=== PATIENT | female | born 1935 | race Caucasian/White ===

== ENCOUNTER 2016-05-28 08:59 | Emergency (ER) | payer MEDICARE, OTHER ==
[~2016-05-28] VITALS: Ht 160 cm; Wt 60.0 kg
[~2016-05-28 08:59] MED LIST: AFRIN 15 ML15 ML NS; ASPIRIN E.C. 8181 MG PO; COLACE 100100 MG/CAP PO; COUMADIN 1MG1 MG/TAB PO; COUMADIN1 MG PO; COUMADIN2 MG PO; DIGOXIN PO; FISH OIL1000 MG PO; FISH OIL500 MG PO; IRON FERROUS S325 MG PO; LANOX0.0625; LANOXIN0.5 MG PO; LEVOTHYROXINE PO; MUCINEX D1 TER PO; MULTAQ400 MG PO; MULTIVITAMIN1 CTB PO; NEXIUM PO; PREMARIN PO; PRILOSEC 20MG20 MG PO; PRILOTC; REMERON30 MG PO; SIMVASTATIN20 MG PO; SINEMET 10/101 UDTAB PO; SYNTHROID0.1 MG/TAB PO; TAMBOCOR 1100 MG/TAB PO; VITAMIN D5000 IU PO; VITAMIND3 5000 PO; ZANTAC 150150 MG PO; ZOCOR 20MG20 MG PO
[2016-05-28 09:13] VITALS: BP 120/59; TEMP 98.5
[2016-05-28] MEDS ORDERED: COUMADIN 2MG2 MG/TAB PO (09:32)
[2016-05-28] MEDS ORDERED: COUMADIN 3MG3 MG/TAB PO (09:32)
[2016-05-28 09:45] LABS: BASO % 0.3 % (0.0-2.0); EOS # 0.1 (0.0-0.7); EOS % 0.6 % (0-4.0); GRAN # 6.3 (1.4-6.5); GRAN % 78.8 % (42.2-75.2); HEMATOCRIT 38.2 % (37.0-47.0); HEMOGLOBIN 12.8 g/dl (12.5-16.0); LYMPH % 13.1 % (20.0-51.0); MEAN CELL VOLUME 89 fl (80.0-100.0); MEAN CORPUSCULAR HEMOGLOBIN 30 pg (27.0-31.0); MEAN CORPUSCULAR HGB CONC 34 g/dl (33.0-37.0); MEAN PLATELET VOLUME 9.1 fl (7.4-10.4); MONO # 0.6 (0.1-0.6); MONO % 6.9 % (1.7-9.3); PLATELET COUNT 217 K/mm3 (130-400); RED BLOOD COUNT 4.31 M/mm3 (4.10-5.30); REDCELL DISTRIBUTION WIDTH-CV 13.2 % (11.5-14.5); WHITE BLOOD COUNT 7.9 K/mm3 (4.8-10.8)
[2016-05-28 09:50] LABS: PROTHROMBIN TIME 36.2 SECONDS (9.7-12.8)
[2016-05-28 09:51] LABS: INR 3.2 (0.8-3.0)
[2016-05-28 10:26] VITALS: PULSE 69
== END 2016-05-28 10:27 | disposition home or self-care (01) ==
LOC: COL.ER 08:59
PROVIDERS: Emergency Medicine
DX: R04.0 Epistaxis (principal); I10 Essential (primary) hypertension; Z79.01 Long term (current) use of anticoagulants

== ENCOUNTER 2016-08-25 16:51 | Emergency (ER) | payer MEDICARE, OTHER ==
[~2016-08-25] VITALS: Ht 160 cm; Wt 57.7 kg
[~2016-08-25 16:51] MED LIST changes: +COUMADIN 2MG2 MG/TAB PO; +COUMADIN 3MG3 MG/TAB PO
[2016-08-25 16:56] VITALS: TEMP 97.9
[2016-08-25 19:02] VITALS: BP 132/62; PULSE 74
== END 2016-08-25 19:03 | disposition home or self-care (01) ==
LOC: COL.ER 16:51
DX: S00.03XA Contusion of scalp, initial encounter (principal); S09.90XA Unspecified injury of head, initial encounter; S00.81XA Abrasion of other part of head, initial encounter; S60.512A Abrasion of left hand, initial encounter; S80.02XA Contusion of left knee, initial encounter; I48.91 Unspecified atrial fibrillation; W01.198A Fall on same level from slipping, tripping and stumbling with subsequent striking against other object, initial encounter; Y92.512 Supermarket, store or market as the place of occurrence of the external cause; E11.9 Type 2 diabetes mellitus without complications; Z79.82 Long term (current) use of aspirin; Z79.01 Long term (current) use of anticoagulants; R40.2412 Glasgow coma scale score 13-15, at arrival to emergency department

== ENCOUNTER 2016-11-24 13:25 | Inpatient (IN) | payer MEDICARE, OTHER ==
[~2016-11-24] VITALS: Ht 157.5 cm; Wt 54.6 kg
[2016-11-24 14:59] LABS: BASO % 0.1 % (0.0-2.0); EOS % 0.4 % (0-4.0); GRAN # 5.6 (1.4-6.5); GRAN % 71.7 % (42.2-75.2); HEMATOCRIT 38.5 % (37.0-47.0); HEMOGLOBIN 13.3 g/dl (12.5-16.0); LYMPH # 1.3 (1.2-3.4); LYMPH % 16.9 % (20.0-51.0); MEAN CELL VOLUME 87 fl (80.0-100.0); MEAN CORPUSCULAR HEMOGLOBIN 30 pg (27.0-31.0); MEAN CORPUSCULAR HGB CONC 35 g/dl (33.0-37.0); MEAN PLATELET VOLUME 9.9 fl (7.4-10.4); MONO # 0.8 (0.1-0.6); MONO % 10.3 % (1.7-9.3); PLATELET COUNT 206 K/mm3 (130-400); RED BLOOD COUNT 4.44 M/mm3 (4.10-5.30); WHITE BLOOD COUNT 7.9 K/mm3 (4.8-10.8)
[2016-11-24 15:03] LABS: INR 2.1 (0.8-3.0); PROTHROMBIN TIME 24.4 SECONDS (9.7-12.8)
[2016-11-24 15:05] LABS: PARTIAL THROMBOPLASTIN TIME 30.4 SECONDS (26.0-37.0)
[2016-11-24 15:13] LABS: ADJUSTED CALCIUM 9.5 mg/dL (8.4-10.2); ALANINE AMINOTRANSFERASE 39 U/L (9-52); ALBUMIN 4.2 gm/dL (3.5-5.0); ALKALINE PHOSPHATASE 86 U/L (50-136); ANION GAP 9 mmol/L (7-16); BILIRUBIN,TOTAL 0.5 mg/dL (0.0-1.0); BLOOD UREA NITROGEN 22 mg/dL (7-17); C-REACTIVE PROTEIN 0.6 mg/dL (0.0-0.9); CALCIUM 9.7 mg/dL (8.4-10.2); CARBON DIOXIDE 31 mmol/L (22-30); CHLORIDE 97 mmol/L (98-107); CREATINE KINASE 43 U/L (30-135); CREATININE, serum 0.88 mg/dL (0.52-1.25); GLUCOSE 104 mg/dL (74-106); POTASSIUM 3.6 mmol/L (3.4-5.0); SODIUM 137 mmol/L (137-145); TOTAL PROTEIN 6.6 gm/dL (6.4-8.2)
[2016-11-24] MEDS ORDERED: SINEMET 25/101 UDTAB PO (15:17)
[2016-11-24] MEDS ORDERED: ZANTAC 150MG T150 MG PO (15:19)
[2016-11-24 15:29] LABS: TROPONIN-I < 0.012 ng/mL (0.000-0.034)
[2016-11-24 15:30] LABS: PH 7 (5-8); SQUAMOUS EPITHELIAL 0-2 /hpf; URINE APPEARANCE Clear; URINE BACTERIA Rare /hpf; URINE BILIRUBIN Negative (NEGATIVE); URINE BLOOD 1+ (NEGATIVE); URINE COLOR Yellow; URINE GLUCOSE Negative (NEGATIVE); URINE KETONE Negative (NEGATIVE); URINE UROBILINOGEN Negative (NEGATIVE); URINE WBC 0-2 /hpf
[2016-11-24] MEDS ORDERED: LANOXIN 0.120.125 MG PO (16:09)
[2016-11-24 17:46] VITALS: BP 171/73; PULSE 69; TEMP 97.9
[2016-11-24 18:33] LABS: DIGOXIN < 0.4 ng/mL (0.8-2.0)
[2016-11-24 19:44] VITALS: BP 110/57; PULSE 64; TEMP 97.3
[2016-11-25] VITALS (7 sets, daily range): BP systolic 109–178; BP diastolic 61–78; PULSE 59–69; TEMP 97.5–98.2
[2016-11-25 06:50] LABS: CALCIUM 9.2 mg/dL (8.4-10.2); CREATININE, serum 0.81 mg/dL (0.52-1.25); INR 2.2 (0.8-3.0); POTASSIUM 3.5 mmol/L (3.4-5.0); PROTHROMBIN TIME 24.7 SECONDS (9.7-12.8)
[2016-11-26 03:23] VITALS: BP 136/64; PULSE 61; TEMP 98
[2016-11-26 08:17] VITALS: BP 113/66; PULSE 70; TEMP 97.6
[2016-11-26 11:15] VITALS: BP 114/62; PULSE 57; TEMP 98
== END 2016-11-26 16:15 | disposition home or self-care (01) | DRG 57 ==
LOC: COL.ER 13:25 → MEDICAL 16:03
PROVIDERS: Emergency Medicine; Physician Assistant
DX: G20 Parkinson's disease (principal); G81.94 Hemiplegia, unspecified affecting left nondominant side; I10 Essential (primary) hypertension; I48.2 Chronic atrial fibrillation; Z86.711 Personal history of pulmonary embolism; Z79.01 Long term (current) use of anticoagulants; G62.9 Polyneuropathy, unspecified
CPT/HCPCS: 99223-AI; 99233-AI; 99239; A9585

== ENCOUNTER 2016-11-27 13:29 | Emergency (ER) | payer MEDICARE, OTHER ==
[~2016-11-27] VITALS: Ht 160 cm; Wt 54.5 kg
[~2016-11-27 13:29] MED LIST changes: +LANOXIN 0.120.125 MG PO; +SINEMET 25/101 UDTAB PO; +ZANTAC 150MG T150 MG PO
[2016-11-27 13:32] VITALS: TEMP 97.7
[2016-11-27 14:12] LABS: BASO % 0.2 % (0.0-2.0); EOS % 0.3 % (0-4.0); GRAN # 7.8 (1.4-6.5); GRAN % 80.6 % (42.2-75.2); HEMATOCRIT 40.2 % (37.0-47.0); HEMOGLOBIN 13.8 g/dl (12.5-16.0); LYMPH # 0.9 (1.2-3.4); LYMPH % 9.7 % (20.0-51.0); MEAN CELL VOLUME 88 fl (80.0-100.0); MEAN CORPUSCULAR HEMOGLOBIN 30 pg (27.0-31.0); MEAN CORPUSCULAR HGB CONC 34 g/dl (33.0-37.0); MEAN PLATELET VOLUME 9.2 fl (7.4-10.4); MONO # 0.9 (0.1-0.6); MONO % 8.9 % (1.7-9.3); PLATELET COUNT 250 K/mm3 (130-400); RED BLOOD COUNT 4.59 M/mm3 (4.10-5.30); REDCELL DISTRIBUTION WIDTH-CV 13.3 % (11.5-14.5); WHITE BLOOD COUNT 9.7 K/mm3 (4.8-10.8)
[2016-11-27 14:17] LABS: INR 1.7 (0.8-3.0)
[2016-11-27 14:27] LABS: ALBUMIN 4.3 gm/dL (3.5-5.0); BILIRUBIN,TOTAL 0.5 mg/dL (0.0-1.0); CALCIUM 10.2 mg/dL (8.4-10.2); CREATININE, serum 1.25 mg/dL (0.52-1.25); POTASSIUM 4.5 mmol/L (3.4-5.0); TOTAL PROTEIN 7.1 gm/dL (6.4-8.2)
[2016-11-27 16:17] VITALS: BP 160/79; PULSE 71
== END 2016-11-27 16:21 | disposition home or self-care (01) ==
LOC: COL.ER 13:29
PROVIDERS: Family Medicine
DX: E86.0 Dehydration (principal); G20 Parkinson's disease; Z79.82 Long term (current) use of aspirin
CPT/HCPCS: J7030

== ENCOUNTER 2016-12-19 12:00 | Day surgery (SDC) | payer MEDICARE, OTHER ==
[2016-12-19] VITALS (11 sets, daily range): BP systolic 93–176; BP diastolic 45–89; PULSE 65–76; TEMP 97.6–98
[2016-12-19] MEDS ORDERED: GENTLE LAXATIVE10 MG RC (12:51)
[2016-12-19] MEDS ORDERED: MIRALAX PA17 GM/Dose PO (12:54)
[2016-12-19 13:24] LABS: HEMATOCRIT 39.2 % (37.0-47.0); HEMOGLOBIN 13.3 g/dl (12.5-16.0); MEAN CELL VOLUME 87 fl (80.0-100.0); MEAN CORPUSCULAR HEMOGLOBIN 30 pg (27.0-31.0); MEAN CORPUSCULAR HGB CONC 34 g/dl (33.0-37.0); PLATELET COUNT 242 K/mm3 (130-400); RED BLOOD COUNT 4.49 M/mm3 (4.10-5.30); REDCELL DISTRIBUTION WIDTH-CV 13.2 % (11.5-14.5); WHITE BLOOD COUNT 6.5 K/mm3 (4.8-10.8)
[2016-12-19 13:25] LABS: CREATININE, serum 0.86 mg/dL (0.52-1.25); POTASSIUM 4.2 mmol/L (3.4-5.0); PROTHROMBIN TIME 11.5 SECONDS (9.7-12.8)
[2016-12-20 04:02] VITALS: BP 136/70; PULSE 65; TEMP 97.8
[2016-12-20 07:37] VITALS: BP 115/67; PULSE 62; TEMP 98.3
[2016-12-20 11:31] VITALS: BP 141/72; PULSE 66; TEMP 97.6
== END 2016-12-20 16:28 ==
LOC: COL.CAR 12:00 → MEDICAL 15:52 → COL.CAR 12-20 16:28
PROVIDERS: Internal Medicine Interventional Cardiology
DX: I48.91 Unspecified atrial fibrillation (principal); I49.5 Sick sinus syndrome; Z95.818 Presence of other cardiac implants and grafts; I10 Essential (primary) hypertension
CPT/HCPCS: OP; C1785; C1898; G8978-GP; G8979-GP; J0690; J2250; J3010; J7030

== ENCOUNTER 2018-01-10 13:00 | Inpatient (IN) | payer MEDICARE, OTHER ==
[~2018-01-10] VITALS: Ht 160 cm; Wt 53.0 kg
[~2018-01-10 13:00] MED LIST changes: +GENTLE LAXATIVE10 MG RC; +MIRALAX PA17 GM/Dose PO
[2018-01-10 13:40] LABS: BASO % 0.2 % (0.0-2.0); EOS # 0.1 (0.0-0.7); EOS % 0.4 % (0-4.0); GRAN % 85.9 % (42.2-75.2); HEMATOCRIT 40.7 % (37.0-47.0); HEMOGLOBIN 13.9 g/dl (12.5-16.0); LYMPH # 0.8 (1.2-3.4); LYMPH % 6.5 % (20.0-51.0); MEAN CELL VOLUME 85 fl (80.0-100.0); MEAN CORPUSCULAR HEMOGLOBIN 29 pg (27.0-31.0); MEAN CORPUSCULAR HGB CONC 34 g/dl (33.0-37.0); MEAN PLATELET VOLUME 9.6 fl (7.4-10.4); MONO # 0.8 (0.1-0.6); MONO % 6.5 % (1.7-9.3); PLATELET COUNT 249 K/mm3 (130-400); RED BLOOD COUNT 4.78 M/mm3 (4.10-5.30); REDCELL DISTRIBUTION WIDTH-CV 12.5 % (11.5-14.5)
[2018-01-10] MEDS ORDERED: PROAMATINE2.5 MG PO (13:43)
[2018-01-10 13:44] LABS: INR 1.8 (0.8-3.0); PROTHROMBIN TIME 19.9 SECONDS (9.7-12.8)
[2018-01-10] MEDS ORDERED: NORCO 325 MG-51 TAB PO (13:44)
[2018-01-10] MEDS ORDERED: CLARITIN 1010 MG/TAB PO (13:44)
[2018-01-10] MEDS ORDERED: TYLENOL 325MG325 MG PO (13:44)
[2018-01-10 13:49] LABS: ALANINE AMINOTRANSFERASE 17 U/L (9-52); ALBUMIN 4.1 gm/dL (3.5-5.0); ALKALINE PHOSPHATASE 87 U/L (50-136); ANION GAP 13 mmol/L (7-16); AST,SGOT 15 U/L (15-37); BILIRUBIN,TOTAL 0.7 mg/dL (0.0-1.0); BLOOD UREA NITROGEN 19 mg/dL (7-17); CALCIUM 9.7 mg/dL (8.4-10.2); CARBON DIOXIDE 34 mmol/L (22-30); CHLORIDE 95 mmol/L (98-107); GLUCOSE 130 mg/dL (74-106); POTASSIUM 3.2 mmol/L (3.4-5.0); SODIUM 142 mmol/L (137-145); TOTAL PROTEIN 6.9 gm/dL (6.4-8.2)
[2018-01-10 14:10] LABS: COLLECTION METHOD CLEAN CATCH
[2018-01-10 14:10] LABS: TROPONIN-I < 0.012 ng/mL (0.000-0.034)
[2018-01-10 14:20] LABS: MUCOUS Present /lpf; PH 8 (5-8); URINE APPEARANCE Hazy; URINE BACTERIA None Seen /hpf; URINE BILIRUBIN Negative (NEGATIVE); URINE BLOOD 1+ (NEGATIVE); URINE COLOR Yellow; URINE GLUCOSE 1+ (NEGATIVE); URINE KETONE Trace (NEGATIVE); URINE LEUKOCYTE ESTERASE Negative (NEGATIVE); URINE NITRATE Negative (NEGATIVE); URINE PROTEIN(semi-quant) 2+ (NEGATIVE); URINE UROBILINOGEN Negative (NEGATIVE)
[2018-01-10 17:05] VITALS: BP 122/73; PULSE 76; TEMP 98.7
[2018-01-10 17:16] VITALS: BP 123/87
[2018-01-10 17:18] VITALS: BP 88/58
[2018-01-10 17:31] LABS: TROPONIN-I < 0.012 ng/mL (0.000-0.034)
[2018-01-10 17:49] LABS: TSH w REFLEX 0.642 uIU/mL (0.465-4.680)
[2018-01-10 20:58] VITALS: BP 96/47; PULSE 77; TEMP 98.5
[2018-01-11] VITALS (7 sets, daily range): BP systolic 87–158; BP diastolic 44–85; PULSE 56–77; TEMP 97.4–98.5
[2018-01-11 07:09] LABS: BASO % 0.1 % (0.0-2.0); EOS # 0.1 (0.0-0.7); GRAN # 5.5 (1.4-6.5); GRAN % 77.4 % (42.2-75.2); LYMPH # 0.9 (1.2-3.4); LYMPH % 12.3 % (20.0-51.0); MEAN CELL VOLUME 86 fl (80.0-100.0); MEAN CORPUSCULAR HGB CONC 34 g/dl (33.0-37.0); MEAN PLATELET VOLUME 9.5 fl (7.4-10.4); MONO # 0.6 (0.1-0.6); MONO % 8.8 % (1.7-9.3); PLATELET COUNT 230 K/mm3 (130-400); RED BLOOD COUNT 3.93 M/mm3 (4.10-5.30); REDCELL DISTRIBUTION WIDTH-CV 12.5 % (11.5-14.5)
[2018-01-11 07:15] LABS: INR 2.3 (0.8-3.0); PROTHROMBIN TIME 25.8 SECONDS (9.7-12.8)
[2018-01-11 07:16] LABS: HEMATOCRIT 33.6 % (37.0-47.0); HEMOGLOBIN 11.3 g/dl (12.5-16.0); MEAN CORPUSCULAR HEMOGLOBIN 29 pg (27.0-31.0)
[2018-01-11 07:23] LABS: CALCIUM 8.7 mg/dL (8.4-10.2); CREATININE, serum 0.9 mg/dL (0.52-1.25); POTASSIUM 3.3 mmol/L (3.4-5.0)
[2018-01-11 07:34] LABS: TROPONIN-I 0.013 ng/mL (0.000-0.034)
[2018-01-11] MEDS ORDERED: SINEMET 25/101 UDTAB PO (08:41)
[2018-01-11] MEDS ORDERED: SINEMET CR1 UDTAB.S1 PO (08:44)
[2018-01-11] MEDS ORDERED: PROAMATINE2.5 MG PO (11:17)
[2018-01-11] MEDS ORDERED: MELAT3MGTAB PO (11:18)
== END 2018-01-11 14:31 | DRG 312 ==
LOC: COL.ER 13:00 → MEDICAL 14:26
PROVIDERS: Emergency Medicine; Physician Assistant
DX: I95.1 Orthostatic hypotension (principal); S00.03XA Contusion of scalp, initial encounter; W19.XXXA Unspecified fall, initial encounter; E87.6 Hypokalemia; K21.9 Gastro-esophageal reflux disease without esophagitis; I48.2 Chronic atrial fibrillation; Z79.01 Long term (current) use of anticoagulants; Z86.711 Personal history of pulmonary embolism; E03.9 Hypothyroidism, unspecified; G20 Parkinson's disease; E78.5 Hyperlipidemia, unspecified; G89.29 Other chronic pain; M54.9 Dorsalgia, unspecified
CPT/HCPCS: 99222-AI; J3475; J7030

== ENCOUNTER 2018-03-05 18:42 | Inpatient (IN) | payer MEDICARE, OTHER ==
[~2018-03-05] VITALS: Ht 160 cm; Wt 56.6 kg
[2018-03-05] VITALS (110 sets, daily range): BP systolic 141; BP diastolic 68; PULSE 62; TEMP 97.6; O2SAT 52–100
[~2018-03-05 18:42] MED LIST changes: +CLARITIN 1010 MG/TAB PO; +MELAT3MGTAB PO; +NORCO 325 MG-51 TAB PO; +PROAMATINE2.5 MG PO; +SINEMET CR1 UDTAB.S1 PO; +TYLENOL 325MG325 MG PO
[2018-03-05 19:09] LABS: HEMATOCRIT 37.7 % (37.0-47.0); HEMOGLOBIN 12.5 g/dl (12.5-16.0); MEAN CELL VOLUME 87 fl (80.0-100.0); MEAN CORPUSCULAR HEMOGLOBIN 29 pg (27.0-31.0); MEAN CORPUSCULAR HGB CONC 33 g/dl (33.0-37.0); MEAN PLATELET VOLUME 9.5 fl (7.4-10.4); PLATELET COUNT 262 K/mm3 (130-400); RED BLOOD COUNT 4.34 M/mm3 (4.10-5.30); REDCELL DISTRIBUTION WIDTH-CV 15.1 % (11.5-14.5)
[2018-03-05 19:14] LABS: INR 3.6 (0.8-3.0); PROTHROMBIN TIME 40.5 SECONDS (9.7-12.8)
[2018-03-05 19:17] LABS: PARTIAL THROMBOPLASTIN TIME 45.1 SECONDS (26.0-37.0)
[2018-03-05] MEDS ORDERED: KLOR-CON M2020 MEQ PO (19:18)
[2018-03-05 19:20] LABS: BILIRUBIN,TOTAL 0.4 mg/dL (0.0-1.0); CALCIUM 9.6 mg/dL (8.4-10.2); CREATININE, serum 1.24 mg/dL (0.52-1.25); POTASSIUM 4.4 mmol/L (3.4-5.0); TOTAL PROTEIN 6.7 gm/dL (6.4-8.2)
[2018-03-05 19:31] LABS: TROPONIN-I 0.016 ng/mL (0.000-0.034)
[2018-03-05 19:41] LABS: ANISOCYTOSIS 1+; BAND 3 % (0-10); EOSINOPHIL 1 % (0-4); LYMPHOCYTE 14 % (20.0-51.0); NEUTROPHILS 77 % (42.0-75.2); PLATELET ESTIMATE NORMAL (NORMAL)
[2018-03-05] MEDS ORDERED: ARICEPT 5MG PO (22:31)
[2018-03-05] MEDS ORDERED: DULCOLAX S10 MG/SUPP RC (22:36)
[2018-03-05] MEDS ORDERED: FLORINEF ACETA0.1 MG PO (22:49)
[2018-03-05] MEDS ORDERED: ALUMINUM & MAG355 ML PO (22:50)
[2018-03-05] MEDS ORDERED: MAG-OX 400400 MG/TAB PO (22:52)
[2018-03-06] VITALS (337 sets, daily range): BP systolic 108–140; BP diastolic 50–72; PULSE 59–65; TEMP 97.4–98.5; O2SAT 89–100
[2018-03-06 04:23] LABS: COLLECTION METHOD CLEAN CATCH
[2018-03-06 04:31] LABS: MUCOUS Present /lpf; PH 6 (5-8); SQUAMOUS EPITHELIAL 0-2 /hpf; URINE APPEARANCE Clear; URINE BACTERIA None Seen /hpf; URINE BILIRUBIN Negative (NEGATIVE); URINE BLOOD Negative (NEGATIVE); URINE COLOR Yellow; URINE GLUCOSE Negative (NEGATIVE); URINE KETONE Trace (NEGATIVE); URINE LEUKOCYTE ESTERASE Negative (NEGATIVE); URINE NITRATE Negative (NEGATIVE); URINE PROTEIN(semi-quant) Negative (NEGATIVE); URINE UROBILINOGEN Negative (NEGATIVE)
[2018-03-06 05:54] LABS: BASO % 0.2 % (0.0-2.0); EOS % 0.6 % (0-4.0); GRAN # 4.3 (1.4-6.5); GRAN % 68.3 % (42.2-75.2); LYMPH # 1.3 (1.2-3.4); LYMPH % 20.4 % (20.0-51.0); MEAN CELL VOLUME 88 fl (80.0-100.0); MEAN CORPUSCULAR HEMOGLOBIN 29 pg (27.0-31.0); MEAN CORPUSCULAR HGB CONC 33 g/dl (33.0-37.0); MEAN PLATELET VOLUME 9.8 fl (7.4-10.4); MONO # 0.6 (0.1-0.6); MONO % 10.2 % (1.7-9.3); PLATELET COUNT 238 K/mm3 (130-400); RED BLOOD COUNT 4.13 M/mm3 (4.10-5.30); REDCELL DISTRIBUTION WIDTH-CV 15.2 % (11.5-14.5)
[2018-03-06 05:55] LABS: HEMATOCRIT 36.3 % (37.0-47.0)
[2018-03-06 06:04] LABS: CALCIUM 9.3 mg/dL (8.4-10.2); CREATININE, serum 0.92 mg/dL (0.52-1.25); POTASSIUM 3.9 mmol/L (3.4-5.0)
[2018-03-06 07:19] LABS: INR 3.8 (0.8-3.0); PROTHROMBIN TIME 43.4 SECONDS (9.7-12.8)
[2018-03-07 00:11] VITALS: BP 124/62; PULSE 59; TEMP 98.2
[2018-03-07 06:22] VITALS: BP 120/74; PULSE 68; TEMP 98.7
[2018-03-07 07:07] LABS: EOS % 0.3 % (0-4.0); GRAN # 5.7 (1.4-6.5); GRAN % 79.1 % (42.2-75.2); HEMOGLOBIN 11.2 g/dl (12.5-16.0); LYMPH # 0.8 (1.2-3.4); LYMPH % 10.9 % (20.0-51.0); MEAN CELL VOLUME 87 fl (80.0-100.0); MEAN CORPUSCULAR HEMOGLOBIN 29 pg (27.0-31.0); MEAN CORPUSCULAR HGB CONC 33 g/dl (33.0-37.0); MEAN PLATELET VOLUME 10.1 fl (7.4-10.4); MONO # 0.7 (0.1-0.6); MONO % 9.4 % (1.7-9.3); PLATELET COUNT 249 K/mm3 (130-400); RED BLOOD COUNT 3.88 M/mm3 (4.10-5.30); REDCELL DISTRIBUTION WIDTH-CV 15.2 % (11.5-14.5)
[2018-03-07 07:15] LABS: HEMATOCRIT 33.8 % (37.0-47.0)
[2018-03-07 07:16] LABS: CALCIUM 9.3 mg/dL (8.4-10.2); CREATININE, serum 0.82 mg/dL (0.52-1.25); POTASSIUM 3.8 mmol/L (3.4-5.0)
[2018-03-07 08:01] VITALS: BP 135/68; PULSE 61; TEMP 98.3
[2018-03-07 08:54] LABS: INR 3.5 (0.8-3.0); PROTHROMBIN TIME 40.1 SECONDS (9.7-12.8)
[2018-03-07 12:04] VITALS: BP 164/70; PULSE 63; TEMP 98.2
[2018-03-07] MEDS ORDERED: LOPRESSOR 225 MG/TAB PO (14:55)
[2018-03-07] MEDS ORDERED: PROTONIX 40MG T40 MG PO (15:13)
[2018-03-07 15:15] VITALS: BP 164/70; PULSE 63; TEMP 98.2
== END 2018-03-07 15:54 | DRG 315 ==
LOC: COL.ER 18:42 → ICU 20:24 → MEDICAL 03-06 14:15
PROVIDERS: Family Medicine; Nurse Practitioner Family; Physician Assistant
DX: T82.118A Breakdown (mechanical) of other cardiac electronic device, initial encounter (principal); E46 Unspecified protein-calorie malnutrition; R00.9 Unspecified abnormalities of heart beat; Z66 Do not resuscitate; I10 Essential (primary) hypertension; I95.1 Orthostatic hypotension; E78.5 Hyperlipidemia, unspecified; I48.0 Paroxysmal atrial fibrillation; Z86.711 Personal history of pulmonary embolism; Z79.01 Long term (current) use of anticoagulants; G20 Parkinson's disease; Z95.0 Presence of cardiac pacemaker; Z87.891 Personal history of nicotine dependence; Z68.21 Body mass index [BMI] 21.0-21.9, adult; F32.9 Major depressive disorder, single episode, unspecified; F43.21 Adjustment disorder with depressed mood
CPT/HCPCS: 99223-AI; 99239; J7030

== ENCOUNTER → 2018-06-03 | Outpatient (CLI) | payer MEDICARE, OTHER ==
[~2018-06-03] MED LIST changes: +ALUMINUM & MAG355 ML PO; +ARICEPT 5MG PO; +DULCOLAX S10 MG/SUPP RC; +FLORINEF ACETA0.1 MG PO; +KLOR-CON M2020 MEQ PO; +LOPRESSOR 225 MG/TAB PO; +MAG-OX 400400 MG/TAB PO; +PROTONIX 40MG T40 MG PO
== END ==
LOC: COL.RAD 14:24
DX: K57.30 Diverticulosis of large intestine without perforation or abscess without bleeding (principal); J98.4 Other disorders of lung; R31.29 Other microscopic hematuria; Z90.49 Acquired absence of other specified parts of digestive tract; Z90.710 Acquired absence of both cervix and uterus

== ENCOUNTER → 2018-12-13 | Outpatient (CLI) | payer MEDICARE, OTHER ==
[~2018-12-13] VITALS: Ht 160 cm; Wt 67.8 kg
[~2018-12-13] MED LIST changes: +ARICEPT10 MG PO; +ASPERCREME1 EACH TP; +ATROVENT NASAL15 ML NS; +AYR SALINE GEL1 NS; +CARAFATE 1GM1 G PO; +EPA FISH OIL1 SGL PO; +GERI-LANTA 355355 ML PO; +GOOD NEIGHBOR P1 CRE TP; +LEXAPRO 10MG10 MG PO; +LIQUIFILM TEARS15 ML OU; +MELATONIN 3MG PO; +NATURE'S BLEND100 M2 PO; +PRIL40 PO; +PROCTOFOAM-HC 11 FOA RC; +SYNTHROID0.112 MG/T PO; +TOPROL XL 25MG25 MG PO; +TUCKS50% TP; +VITAMIN B-625 MG PO; +VOLTAREN GEL 1%1 TU TP
[2018-12-13 13:55] VITALS: BP 138/73; PULSE 75
[2018-12-13 14:35] LABS: INR 1.1 (0.8-3.0); PROTHROMBIN TIME 12.6 SECONDS (9.7-12.8)
[2018-12-13 15:30] VITALS: BP 137/84; PULSE 76
--- NOTE | 2018-12-13 15:55 | NUR ---
Pt out to car per wheelchair. Stand by assistance getting into car. Pt denies pain at this time. Bandaid to site continues clean dry and intact.
== END ==
LOC: COL.RAD 13:15
PROVIDERS: Internal Medicine
DX: M47.812 Spondylosis without myelopathy or radiculopathy, cervical region (principal)
CPT/HCPCS: J1100

== ENCOUNTER 2019-02-24 09:21 | Day surgery (SDC) | payer MEDICARE, OTHER ==
[~2019-02-24] VITALS: Ht 160 cm; Wt 71.0 kg
[2019-02-24 09:35] VITALS: BP 165/95; PULSE 73; TEMP 97.7
[2019-02-24] MEDS ORDERED: AFRIN 15 ML15 ML NS (10:09)
[2019-02-24] MEDS ORDERED: ARICEPT10 MG PO (10:10)
[2019-02-24] MEDS ORDERED: ASPERCREME1 EACH TP (10:11)
[2019-02-24] MEDS ORDERED: LIQUIFILM TEARS15 ML OU (10:11)
[2019-02-24] MEDS ORDERED: SALINE 45 ML45 ML NS (10:13)
[2019-02-24] MEDS ORDERED: GOOD NEIGHBOR P1 CRE TP (10:14)
[2019-02-24] MEDS ORDERED: VITAMIND3 5000 PO (10:16)
[2019-02-24] MEDS ORDERED: CYMBALTA 30MG30 MG PO (10:17)
[2019-02-24] MEDS ORDERED: NEUPRO4 MG/24 HR TD (10:25)
[2019-02-24] MEDS ORDERED: PROCTOFOAM-HC 11 FOA RC (10:27)
[2019-02-24] MEDS ORDERED: PROTONIX 40MG T40 MG PO (10:28)
[2019-02-24] MEDS ORDERED: SYSTANE 0.4%-0.1 SOL OP (10:32)
[2019-02-24 11:15] VITALS: BP 173/88; PULSE 76; TEMP 97.6
--- NOTE | 2019-02-24 11:15 | NUR ---
Patient brought back to bay 5 via cart. Ambulated to chair with one assist. Placed on monitors, vital signs stable. Denies pain or nausea. Friend Edwin at bedside. Report recieved from LUIS Rodriguez. All comfort and safety maintained. Requesting water at this time, will continue to monitor.
[2019-02-24 11:30] VITALS: BP 174/83; PULSE 73
[2019-02-24 11:45] VITALS: BP 176/89; PULSE 74
--- NOTE | 2019-02-24 11:45 | NUR ---
Patient tolerating food without difficulty. States she is feeling ready to leave. Will continue to monitor.
--- NOTE | 2019-02-24 11:55 | NUR ---
This RN called [facility], gave report to Krys TOMLINSON. All questions answered. Discharge instructions given to patient and friend Edwin. Friend to drive patient home back to custodial. Ambulated to bathroom without difficulty. Patient to get dressed at this time.
--- NOTE | 2019-02-24 12:12 | NUR ---
Patient brought down to lobby via wheel chair. To be driven home by friend Edwin.
== END 2019-02-24 12:12 | disposition home or self-care (01) ==
LOC: SDCO 09:21
DX: K31.7 Polyp of stomach and duodenum (principal); K44.9 Diaphragmatic hernia without obstruction or gangrene; K29.60 Other gastritis without bleeding; K21.9 Gastro-esophageal reflux disease without esophagitis; G47.33 Obstructive sleep apnea (adult) (pediatric); I48.91 Unspecified atrial fibrillation; G20 Parkinson's disease; I10 Essential (primary) hypertension; J44.9 Chronic obstructive pulmonary disease, unspecified; F02.80 Dementia in other diseases classified elsewhere, unspecified severity, without behavioral disturbance, psychotic disturbance, mood disturbance, and anxiety; Z88.1 Allergy status to other antibiotic agents; Z86.711 Personal history of pulmonary embolism; Z90.710 Acquired absence of both cervix and uterus; Z90.49 Acquired absence of other specified parts of digestive tract; Z79.82 Long term (current) use of aspirin; Z95.0 Presence of cardiac pacemaker; Z86.73 Personal history of transient ischemic attack (TIA), and cerebral infarction without residual deficits
CPT/HCPCS: J2704; J7120

== ENCOUNTER 2019-03-30 10:39 | Emergency (ER) | payer MEDICARE, OTHER ==
[~2019-03-30] VITALS: Ht 160 cm; Wt 72.7 kg
[~2019-03-30 10:39] MED LIST changes: +CYMBALTA 30MG30 MG PO; +NEUPRO4 MG/24 HR TD; +SALINE 45 ML45 ML NS; +SYSTANE 0.4%-0.1 SOL OP
[2019-03-30 10:41] VITALS: TEMP 96.9
[2019-03-30 11:48] LABS: INR 4.3 (0.8-3.0)
[2019-03-30 11:54] LABS: BASO % 0.1 % (0.0-2.0); EOS # 0.1 (0.0-0.7); EOS % 1.5 % (0-4.0); GRAN # 5.1 (1.4-6.5); GRAN % 69.6 % (42.2-75.2); HEMOGLOBIN 11.5 g/dl (12.5-16.0); LYMPH # 1.5 (1.2-3.4); LYMPH % 20.1 % (20.0-51.0); MEAN CELL VOLUME 87 fl (80.0-100.0); MEAN CORPUSCULAR HEMOGLOBIN 29 pg (27.0-31.0); MEAN CORPUSCULAR HGB CONC 33 g/dl (33.0-37.0); MEAN PLATELET VOLUME 9.1 fl (7.4-10.4); MONO # 0.6 (0.1-0.6); MONO % 8.3 % (1.7-9.3); PLATELET COUNT 312 K/mm3 (130-400); PROTHROMBIN TIME 52.1 SECONDS (9.7-12.8); RED BLOOD COUNT 3.96 M/mm3 (4.10-5.30); REDCELL DISTRIBUTION WIDTH-CV 13.5 % (11.5-14.5)
[2019-03-30 12:04] LABS: HEMATOCRIT 34.6 % (37.0-47.0)
[2019-03-30] MEDS ORDERED: AMOXICILLIN 8751 TAB PO (12:21)
[2019-03-30 12:36] VITALS: BP 165/85; PULSE 75
== END 2019-03-30 12:40 | disposition home or self-care (01) ==
LOC: COL.ER 10:39
PROVIDERS: Emergency Medicine
DX: R04.0 Epistaxis (principal); R79.1 Abnormal coagulation profile; K21.9 Gastro-esophageal reflux disease without esophagitis; E03.9 Hypothyroidism, unspecified; G20 Parkinson's disease; I89.1 Lymphangitis; E78.5 Hyperlipidemia, unspecified; I10 Essential (primary) hypertension; Z79.01 Long term (current) use of anticoagulants; Z86.711 Personal history of pulmonary embolism; Z79.82 Long term (current) use of aspirin

== ENCOUNTER 2019-04-02 15:04 | Emergency (ER) | payer MEDICARE, OTHER ==
[~2019-04-02] VITALS: Ht 160 cm; Wt 70.5 kg
[~2019-04-02 15:04] MED LIST changes: +AMOXICILLIN 8751 TAB PO
[2019-04-02 15:55] VITALS: BP 144/91; PULSE 71; TEMP 98.9
== END 2019-04-02 16:00 | disposition home or self-care (01) ==
LOC: COL.ER 15:04
DX: R04.0 Epistaxis (principal); I10 Essential (primary) hypertension; I48.91 Unspecified atrial fibrillation; Z79.01 Long term (current) use of anticoagulants; Z79.1 Long term (current) use of non-steroidal anti-inflammatories (NSAID)

== ENCOUNTER → 2019-09-08 | Outpatient (CLI) | payer MEDICARE, OTHER ==
[~2019-09-08] MED LIST changes: +CORDARONE200 MG/TAB PO; +LASIX 20MG TABL20 MG PO; +LEXAPRO 5MG5 MG PO; +REQUIP4 MG PO; +TUMS500 MG PO
[2019-09-08 13:38] LABS: INR 1.2 (0.8-3.0); PROTHROMBIN TIME 13.7 SECONDS (9.7-12.8)
[2019-09-08 14:01] VITALS: BP 155/82; PULSE 92
[2019-09-08 15:00] VITALS: BP 179/100; PULSE 86
== END ==
LOC: COL.RAD 07-09 12:00
PROVIDERS: Internal Medicine
DX: M47.812 Spondylosis without myelopathy or radiculopathy, cervical region (principal); Z79.01 Long term (current) use of anticoagulants
CPT/HCPCS: J1100

== ENCOUNTER 2020-03-10 03:18 | Inpatient (IN) | payer MEDICARE, OTHER ==
[2020-03-10] VITALS (56 sets, daily range): BP systolic 132–158; BP diastolic 74–92; PULSE 82–96; TEMP 98.2–98.7; O2SAT 96–100
[~2020-03-10] VITALS: Ht 160 cm; Wt 69.8 kg
[~2020-03-10 03:18] MED LIST changes: +MELATIN 3 MG-11 TAB PO; -MELATONIN 3MG PO; -SYNTHROID0.112 MG/T PO; +SYNTHROID0.125 MG/T PO
[2020-03-10 04:07] LABS: ARTERIAL BLOOD GAS BASE EXCESS 2.7 (-2-2); ARTERIAL BLOOD GAS HCO3 25.9 meq/L (22-26); ARTERIAL BLOOD GAS PCO2 35.2 mmHg (35-45); ARTERIAL BLOOD GAS PO2 59.2 mmHg (80-100); ARTERIAL BLOOD GAS pH 7.49 (7.35-7.45)
[2020-03-10 06:38] LABS: ALBUMIN 3.1 gm/dL (3.5-5.0); BILIRUBIN,TOTAL 0.6 mg/dL (0.0-1.0); CALCIUM 9.8 mg/dL (8.4-10.2); CREATININE, serum 0.94 (0.52-1.25); POTASSIUM 3.9 mmol/L (3.4-5.0); TOTAL PROTEIN 6.3 gm/dL (6.4-8.2)
[2020-03-10 06:41] LABS: HEMOGLOBIN 11.7 g/dl (12.5-16.0); MEAN CELL VOLUME 81 fl (80.0-100.0); MEAN CORPUSCULAR HEMOGLOBIN 27 pg (27.0-31.0); MEAN CORPUSCULAR HGB CONC 34 g/dl (33.0-37.0); MEAN PLATELET VOLUME 8.7 fl (7.4-10.4); PLATELET COUNT 663 K/mm3 (130-400); RED BLOOD COUNT 4.33 M/mm3 (4.10-5.30); REDCELL DISTRIBUTION WIDTH-CV 14.6 % (11.5-14.5)
[2020-03-10 06:43] LABS: HEMATOCRIT 34.9 % (37.0-47.0)
[2020-03-10 06:47] LABS: TROPONIN-I 0.025 ng/mL (0.000-0.035)
[2020-03-10 07:04] LABS: COLLECTION METHOD CATHETER
[2020-03-10 07:14] LABS: C-REACTIVE PROTEIN 30.2 mg/dL (0.0-0.9)
[2020-03-10 07:26] LABS: INR 8.7 (0.8-3.0); PROTHROMBIN TIME 99.6 SECONDS (9.7-12.8)
[2020-03-10 07:32] LABS: BAND 3 % (0-10); EOSINOPHIL 1 % (0-4); LYMPHOCYTE 10 % (20.0-51.0); NEUTROPHILS 80 % (42.0-75.2)
[2020-03-10 07:33] LABS: PLATELET ESTIMATE INCREASED (NORMAL)
[2020-03-10 07:43] LABS: MUCOUS Present /lpf; PH 5 (5-8); SQUAMOUS EPITHELIAL 20-50 /hpf; URINE APPEARANCE Cloudy; URINE BACTERIA Rare /hpf; URINE BILIRUBIN Negative (NEGATIVE); URINE BLOOD 2+ (NEGATIVE); URINE COLOR Yellow; URINE GLUCOSE Negative (NEGATIVE); URINE KETONE Negative (NEGATIVE); URINE LEUKOCYTE ESTERASE Negative (NEGATIVE); URINE NITRATE Negative (NEGATIVE); URINE PROTEIN(semi-quant) Negative (NEGATIVE); URINE RBC 20-50 /hpf; URINE UROBILINOGEN Negative (NEGATIVE)
[2020-03-10] MEDS ORDERED: COUMADIN 1MG1 MG/TAB PO (15:41)
[2020-03-10] MEDS ORDERED: PEPCID 20MG TAB20 MG PO (15:43)
[2020-03-10] MEDS ORDERED: NORCO 325 MG-51 TAB PO (15:44)
--- NOTE | 2020-03-10 19:32 | NUR ---
Pt up to room 304 from ER around 1300. Pt alert, partially oriented, oriented to self and year. Pt unaware of situation or place. Pt denies pain, dizziness, N/V/D. Pt incontinent, brief changed and assisted to bedside commode. Pt 1-2 assist, states she uses walker at AL. Received report that pt was on 6L NC in ER, upon arrival to floor pt was on 3L NC. This nurse unable to obtain good O2 reading, pt hands/fingers cold, provided w/ warm blanket. RT notified and was able to obtain O2 reading of 90%, pt then put on 6L Oxymask, O2 reading of 92% at this time. Pt assisted back to bed. Pt sleeping at dinner time, Pt refused dinner/wanting to eat. This nurse in to administer meds at 1825, pt sleeping, difficult to arouse, satting well. Unable to administer PO meds safely. shift leader aware. Pt has RFA IV that flushes well.
--- NOTE | 2020-03-10 20:30 | NUR ---
PT'S O2 SATS WERE LOW AT 85%, UNABLE TO BRING ABOVE THAT. OXYGEN WAS SET AT 10L OXYMASK. PROVIDER NOTIFIED. ABG'S WERE DRAWN PT'S PO2 WAS 50. AIRVO WAS STARTED PER RT ON 60L, PT STILL SATURATING AT 85%. PT IS TRANSFERRED DOWN TO IMCU. REPORT GIVEN TO LUIS VALERO.
[2020-03-10 21:35] LABS: ARTERIAL BLD GAS TCO2 CT 24.4; ARTERIAL BLOOD GAS BASE EXCESS 0.6 (-2-2); ARTERIAL BLOOD GAS HCO3 23.4 meq/L (22-26); ARTERIAL BLOOD GAS PCO2 32.1 mmHg (35-45); ARTERIAL BLOOD GAS pH 7.48 (7.35-7.45)
--- NOTE | 2020-03-10 22:02 | NUR ---
report received from LUIS Corcoran.
--- NOTE | 2020-03-10 22:35 | NUR ---
pt arrived in icu 3 via bed assisted with this RN and RT. pt now on airvo 60L, 90% FIO2. pt confused and only alert and orineted x1. initial vs stable, see VS flowsheet.
--- NOTE | 2020-03-10 22:57 | NUR ---
EXHIBIT DISPLAY REPRESENTATIVE UPDATED LUKE RUANO REGARDING PT.
--- NOTE | 2020-03-10 23:10 | NUR ---
PT'S SON NIK-DPOA UPDATED REGARDING PT'S TRANSFER AND ALL QUESTIONS ANSWERED. 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 ALSO, NIK WANTS PT'S GRANDSON TO BE ADDED TO THE LIST OF PERSONS THAT CAN BE GIVEN UPDATES REGARDING PT AND HIS NAME IS LUDIVINA ROBERTS. WILL RELAY THIS TO ONCIMING NURSE. [id number] - RUTHY CAROLINA UPDATED REGARDING PT'S CODE STATUS AND PA WILL CALL LUKE AND SON NIK TO CONFIRM.
[2020-03-11] VITALS (525 sets, daily range): BP systolic 107–145; BP diastolic 61–76; PULSE 71–89; TEMP 97.8–98.6; O2SAT 44–100
--- NOTE | 2020-03-11 00:32 | NUR ---
CALLED AT 2109 BY RN THAT PATIENT WAS NEEDING TO GO UP TO 10L OF OXYGEN AND STILL HAVING DESATURATION ISSUES. RUTHY HUFF ORDERED ABG AND DUE TO PO2 BEING 50 AIRVO WAS INICIATED AND SETTINGS WERE 60L 85% AND SPO2 OF 91% WAS HIGH IT WAS GOING.
[2020-03-11 00:41] LABS: ARTERIAL BLD GAS O2 SATURATION 97.6 % (92-100); ARTERIAL BLD GAS TCO2 CT 26.3; ARTERIAL BLOOD GAS BASE EXCESS 1.4 (-2-2); ARTERIAL BLOOD GAS HCO3 25.2 meq/L (22-26); ARTERIAL BLOOD GAS PCO2 37.3 mmHg (35-45); ARTERIAL BLOOD GAS PO2 97.8 mmHg (80-100); ARTERIAL BLOOD GAS pH 7.45 (7.35-7.45)
--- NOTE | 2020-03-11 05:16 | NUR ---
0030 - GODDARD INSERTED PER ORDER, PT TOLERATED PROCEDURE OKAY. PT ALSO URINATED WHILE INSERTING CATHETER. 0430 - PT CHECKED AND SHE WAS LEAKING FROM HER GODDARD CATHETER. GODDARD REPLACED AND RED-TINGED URINE NOTED. PT COMPLAINED OF A LITLLE BIT OF DISCOMFORT THAT WENT AWAY AFTER 30 MINS.
[2020-03-11 05:48] LABS: MEAN CELL VOLUME 81 fl (80.0-100.0); MEAN CORPUSCULAR HGB CONC 33 g/dl (33.0-37.0); MEAN PLATELET VOLUME 8.5 fl (7.4-10.4); PLATELET COUNT 605 K/mm3 (130-400); RED BLOOD COUNT 3.59 M/mm3 (4.10-5.30)
[2020-03-11 05:50] LABS: HEMOGLOBIN 9.6 g/dl (12.5-16.0); MEAN CORPUSCULAR HEMOGLOBIN 27 pg (27.0-31.0)
[2020-03-11 06:00] LABS: ALBUMIN 3.1 gm/dL (3.5-5.0); BILIRUBIN,TOTAL 0.4 mg/dL (0.0-1.0); CALCIUM 9.6 mg/dL (8.4-10.2); CREATININE, serum 0.88 (0.52-1.25); INR 8.7 (0.8-3.0); MAGNESIUM 2.1 mg/dL (1.6-2.3); POTASSIUM 3.5 mmol/L (3.4-5.0); PROTHROMBIN TIME 99.6 SECONDS (9.7-12.8); TOTAL PROTEIN 6.3 gm/dL (6.4-8.2)
--- NOTE | 2020-03-11 06:02 | NUR ---
CRITICAL LAB OF PT 99.6 AND INR OF 8.[address] KOO OF [facility]. WILL ORDER VITAMIN K, AWAITING FOR ORDER AT THIS TIME.
--- NOTE | 2020-03-11 07:01 | NUR ---
DR. KOO DID NOT PUT ORDER IN FOR VITAMIN K. WILL JUST PASS THIS ALONG TO DAYS SHIFT NURSE TO FOLLOW UP WITH DAY SHIFT HOSPITALIST.
[2020-03-11 07:10] LABS: BAND 5 % (0-10); EOSINOPHIL 1 % (0-4); LYMPHOCYTE 1 % (20.0-51.0); NEUTROPHILS 88 % (42.0-75.2)
[2020-03-11 07:12] LABS: POLYCHROMASIA 1+; TOXIC GRANULATION PRESENT
[2020-03-11 07:13] LABS: ANISOCYTOSIS 1+; PLATELET ESTIMATE INCREASED (NORMAL)
--- NOTE | 2020-03-11 07:30 | NUR ---
RECEIVED REPORT FROM LUIS VALERO. PT RESTING EASILY ON AIRVO. VSS. CALL LIGHT WITHIN REACH. FC PATENT AND DRAINING TO GRAVITY.
--- NOTE | 2020-03-11 10:20 | NUR ---
SPOKE WITH DR RODRIGUEZ ABOUT NO VTE ORDERS AND PT'S PT/INR. PHYSICIAN STATES NO VTE ORDERS AT THIS TIME AND WOULD LIKE TO WATCH THE PT\INR COME DOWN ON ITS OWN BUT TO NOTIFY HIM IF THERE ARE ANY S/S OF BLEEDING.
--- NOTE | 2020-03-11 10:59 | NUR ---
The patient is a PUI and her COVID results are pending. CAMILLE contacted the patient's son, Del Foy (ph#[phone]), to complete intake. The patient resides at [facility] for long-term care. Her PCP is Dr. Rehana Mckenzie. Her DPOA-HC is in EMR and it designates her sons: Del Foy and Saul Foy (ph#[phone]). Del lives in [place] and Saul lives in [place], [place]. Del reports that when the patient is ready to d/c, that plan will be for the patient to return back to [facility]. CAMILLE contacted and faxed updates to Krys at [facility]. CAMILLE to continue to follow.
--- NOTE | 2020-03-11 13:04 | NUR ---
DR TRAN AT BEDSIDE. STATES TO WEAN DOWN O2. RT NOTIFIED.
--- NOTE | 2020-03-11 14:01 | NUR ---
First visit. Body Former was able to stand outside door and pray for patient.
[2020-03-12] VITALS (912 sets, daily range): BP systolic 107–148; BP diastolic 50–73; PULSE 63–79; TEMP 97.7–98.8; O2SAT 71–100
[2020-03-12 04:37] LABS: MEAN CELL VOLUME 81 fl (80.0-100.0); MEAN CORPUSCULAR HGB CONC 33 g/dl (33.0-37.0); MEAN PLATELET VOLUME 8.7 fl (7.4-10.4); PLATELET COUNT 643 K/mm3 (130-400); RED BLOOD COUNT 3.66 M/mm3 (4.10-5.30); REDCELL DISTRIBUTION WIDTH-CV 14.8 % (11.5-14.5)
[2020-03-12 04:41] LABS: CALCIUM 9.9 mg/dL (8.4-10.2); CREATININE, serum 0.79 (0.52-1.25); POTASSIUM 3.6 mmol/L (3.4-5.0)
[2020-03-12 05:05] LABS: BAND 1 % (0-10); LYMPHOCYTE 7 % (20.0-51.0); NEUTROPHILS 88 % (42.0-75.2); PLATELET ESTIMATE INCREASED (NORMAL); PROTHROMBIN TIME 114.2 SECONDS (9.7-12.8)
[2020-03-12 05:09] LABS: HEMATOCRIT 29.7 % (37.0-47.0); HEMOGLOBIN 9.9 g/dl (12.5-16.0); MEAN CORPUSCULAR HEMOGLOBIN 27 pg (27.0-31.0)
--- NOTE | 2020-03-12 14:01 | NUR ---
Sheet Metal Shop Helper spoke with LUIS Marcano at [facility] and faxed updates.
[2020-03-13] VITALS (682 sets, daily range): BP systolic 116–158; BP diastolic 64–77; PULSE 75–99; TEMP 98–100.7; O2SAT 59–100
[2020-03-13 04:38] LABS: BASO % 0.1 % (0.0-2.0); GRAN # 15.3 (1.4-6.5); GRAN % 89.7 % (42.2-75.2); HEMOGLOBIN 10.3 g/dl (12.5-16.0); LYMPH # 0.9 (1.2-3.4); MEAN CELL VOLUME 80 fl (80.0-100.0); MEAN CORPUSCULAR HEMOGLOBIN 27 pg (27.0-31.0); MEAN CORPUSCULAR HGB CONC 33 g/dl (33.0-37.0); MEAN PLATELET VOLUME 8.6 fl (7.4-10.4); MONO # 0.8 (0.1-0.6); MONO % 4.4 % (1.7-9.3); RED BLOOD COUNT 3.88 M/mm3 (4.10-5.30); REDCELL DISTRIBUTION WIDTH-CV 14.9 % (11.5-14.5)
[2020-03-13 04:39] LABS: PLATELET COUNT 531 K/mm3 (130-400)
[2020-03-13 04:45] LABS: INR 2.1 (0.8-3.0); PROTHROMBIN TIME 23.3 SECONDS (9.7-12.8)
[2020-03-13 04:49] LABS: CALCIUM 9.9 mg/dL (8.4-10.2); CREATININE, serum 0.78 (0.52-1.25)
[2020-03-13 04:51] LABS: POTASSIUM 3.1 mmol/L (3.4-5.0)
--- NOTE | 2020-03-13 07:24 | NUR ---
PT rested well throughout the night. AirVo settings increased due to patient O2 sats dropping to the mid 80's, PT was not short of breath during that time. Lung sounds clear. PT had 1 incontient episode of stool and was cleaned and repositioned. Report given to LUIS Rodas.
[2020-03-13 07:29] LABS: ARTERIAL BLD GAS O2 SATURATION 87.5 % (92-100); ARTERIAL BLD GAS TCO2 CT 29.1; ARTERIAL BLOOD GAS BASE EXCESS 4.2 (-2-2); ARTERIAL BLOOD GAS HCO3 27.9 meq/L (22-26); ARTERIAL BLOOD GAS PCO2 38.5 mmHg (35-45); ARTERIAL BLOOD GAS PO2 55.8 mmHg (80-100); ARTERIAL BLOOD GAS pH 7.48 (7.35-7.45)
--- NOTE | 2020-03-13 09:20 | NUR ---
Assisted patient with breakfast. She has no interest in food but thought that she might try the oatmeal. Did get her to drink the orange juice. Patient given AM cares. Teeth brushed. Patient is alert and oriented x 2. She is able to tell me her address; she is in [place]; and her name/. She is unable to tell me month or year. Skin pale in color. Lungs diminshed in bases; resp even and unlabored. Abd soft with bowel sounds x 4 quads. PPP. No edema. Saul with clear yellow urine. Patient given AM medications. No other needs at this time
--- NOTE | 2020-03-13 14:20 | NUR ---
Patient has refused to drink effervesent tabs in juice. Spoke with Dr. Coker. Orders changed to tabs so they could be crushed and placed in applesauce or pudding.
--- NOTE | 2020-03-13 17:06 | NUR ---
Called report to LUIS Bass on the Medical Floor. Patient is resting at this time. Took medications crushed in pudding. She is noted less oriented this PM. When called son for report of patient he stated that is her normal. As the day goes on her memory is not as good. Patient continues on AirVo 79%/60L. IV antibiotics infusing at this time. Patient COVID test is not back yet at this time. Patient has no other needs; resting
--- NOTE | 2020-03-13 18:35 | NUR ---
Patient transferred to the floor at this time. Patient made comfortable. Call light in place. Reported off to LUIS Bass
--- NOTE | 2020-03-13 23:38 | NUR ---
PT IN BED WITH HOB WITH AIRVO ON. PT A/O X4, VERY HARD TO FINISH A SENTENCE. PT DENIES PAIN OR DISCOMFORT AT THIS TIME, CALL LIGHT WITHIN REACH. NOT FURTHER NEEDS AT THIS TIME.
[2020-03-14] VITALS: BP 143/75; PULSE 70; TEMP 97.7
--- NOTE | 2020-03-14 00:17 | NUR ---
PT IN BED WITH HOB AT 30 DEGREE ANGLE, RESTING WELL. NO NEEDS AT THIS TIME, CALL LIGHT WITHIN REACH.
[2020-03-14 03:04] VITALS: BP 128/62; PULSE 67; TEMP 97.5
--- NOTE | 2020-03-14 05:40 | NUR ---
PT IN BED WITH HOB ELEVATED TO 60 DEGREE ANGLE. PT HAVING PAIN BUT NOT ABLE TO DISCRIBE OR KNOWS WHERE IT IS. PT STATES THAT SHE HAS PAIN. PT GIVEN TYLENOL FOR PAIN. PT A/O X4, BUT DRIFTS BACK TO SLEEP EASILY. PT TAKING MEDICATION WELL. PT DID NOT CHEW HER PILLS. SHE HAD ACTUALLY SWALLOWED THEM WHOLE. CALLL LIGHT WITHIN REACH AND BED ALARM ON.
[2020-03-14 06:05] LABS: BASO % 0.1 % (0.0-2.0); EOS % 0.1 % (0-4.0); GRAN # 15.9 (1.4-6.5); GRAN % 88.4 % (42.2-75.2); HEMOGLOBIN 10.1 g/dl (12.5-16.0); LYMPH % 5.6 % (20.0-51.0); MEAN CELL VOLUME 81 fl (80.0-100.0); MEAN CORPUSCULAR HEMOGLOBIN 27 pg (27.0-31.0); MEAN CORPUSCULAR HGB CONC 33 g/dl (33.0-37.0); MONO # 0.8 (0.1-0.6); MONO % 4.6 % (1.7-9.3); PLATELET COUNT 476 K/mm3 (130-400); RED BLOOD COUNT 3.79 M/mm3 (4.10-5.30); REDCELL DISTRIBUTION WIDTH-CV 14.8 % (11.5-14.5)
[2020-03-14 06:08] LABS: HEMATOCRIT 30.5 % (37.0-47.0)
[2020-03-14 06:12] LABS: INR 2.8 (0.8-3.0); PROTHROMBIN TIME 31.6 SECONDS (9.7-12.8)
[2020-03-14 06:20] LABS: CALCIUM 9.6 mg/dL (8.4-10.2); CREATININE, serum 0.78 (0.52-1.25); POTASSIUM 3.4 mmol/L (3.4-5.0)
--- NOTE | 2020-03-14 06:52 | NUR ---
PT HAD TEMP DURING THE NIGHT AND WAS GIVEN TYLENOL. PT SPEECH STILL HARD TO UNDERSTAND, BUT SHE IS MORE INTERACTIVE. PT ALSO ASKED FOR PAIN MEDICATION BUT WAS NOT ABLE TO STATE THE LEVEL OF PAIN OR WHERE IT WAS AT. PT HAS CALL LIGHT WITHIN REACH AND BED ALARM ON.
--- NOTE | 2020-03-14 07:30 | NUR ---
PT LAYING IN BED SLEEPING. NOT NEEDING ANYTHING. CALL LIGHT WITHIN REACH. ON AIRVO 60L. NO FURTHER CONCERNS AT THIS TIME.
[2020-03-14 08:00] VITALS: BP 104/58; PULSE 67; TEMP 97.7
--- NOTE | 2020-03-14 10:04 | NUR ---
CAMILLE faxed updates from 03/13/2020-03/14/2020 to [facility] fax number [phone].
[2020-03-14 12:44] VITALS: BP 110/56; PULSE 67; TEMP 97.7
[2020-03-14 17:47] VITALS: BP 106/49; PULSE 76; TEMP 97.7
--- NOTE | 2020-03-14 18:31 | NUR ---
PT HAS HAD AN UNEVENTFUL DAY, REMAINS ON 60L AIRVO, WAS ABLE TO TOLERATE PO MEDICATIONS. HAS REFUSED EATING, AND ONLY DRINKS WHEN ASSISTED BY SOMEONE ELSE. PT HAS STATED 5 TIMES SHE NEEDS TO PASS A BM, HOWEVER, AFTER BEING PUT ON A BEDPAN, THE PATIENT IS NOT SUCCESSFUL. ALL MEDICATIONS HAVE BEEN PASSED, HOWEVER, MEDITECH DID FREEZE, AND DOCUMENTATION HAS BEEN PENDING. FROM ALL MEDICATIONS DUE FROM 1330 UNTIL 1700 HAVE BEEN GIVEN. THEY WERE ALL GIVEN AT THE SAME TIME OF 1545. THIS RN CONTACTED I[employer]T. AND THEY WERE NOT SUCCESSFUL IN ASSISTING WITH A FIX. THERE IS A TICKET NUMBER: INC [id number] PT'S SON NIK HAS BEEN CONTACTED FOR AN UPDATE ON THE DAY, AND THIS RN DISCUSSED PALLIATIVE CARE WITH HIM. HE SAID HE WOULD LIKE SERVANDO RICCI RN TO CONTACT HIM TOMORROW, OR HE MAY EVEN CALL BACK TOMORROW TO ASK TO SPEAK WITH HER. THERE ARE NO OTHER CONCERNS WITH THIS PATIENT.
--- NOTE | 2020-03-14 20:00 | NUR ---
Assessment complete. Patient wears 60 liters oxygen via airvo and is satting 91-94%. Her respirations appear labored. She is afebrile and does not appear to be in pain. She is drowsy but opens eyes to voice. Her speech is slurred but she swallows pills whole. ROM exercises are performed on extremities at this time and she is offloaded off of bony prominences. Indwelling overton is draining yellow, clear urine. Lorraine care provided.
[2020-03-14 20:26] VITALS: BP 168/81; PULSE 68; TEMP 97.7
--- NOTE | 2020-03-14 21:30 | NUR ---
Due to technical issues, was unable to document the administration of two medications. Proamatine 2.5 mg PO administered and Refresh eyedrops, 1 drop each eye administered. IT notified during dayshift.
[2020-03-15] VITALS (7 sets, daily range): BP systolic 109–152; BP diastolic 52–88; PULSE 67–89; TEMP 97–98.7
[2020-03-15 06:49] LABS: HEMOGLOBIN 10.5 g/dl (12.5-16.0); MEAN CELL VOLUME 79 fl (80.0-100.0); MEAN CORPUSCULAR HEMOGLOBIN 27 pg (27.0-31.0); MEAN CORPUSCULAR HGB CONC 34 g/dl (33.0-37.0); PLATELET COUNT 410 K/mm3 (130-400); RED BLOOD COUNT 3.94 M/mm3 (4.10-5.30); REDCELL DISTRIBUTION WIDTH-CV 14.9 % (11.5-14.5)
[2020-03-15 06:51] LABS: HEMATOCRIT 31.2 % (37.0-47.0)
--- NOTE | 2020-03-15 07:00 | NUR ---
Report received from LUIS Sanchez. pT in bed resting, appears working hard to breath but able to answer questions from doorway.
[2020-03-15 07:09] LABS: CALCIUM 9.8 mg/dL (8.4-10.2); CREATININE, serum 0.83 (0.52-1.25); POTASSIUM 3.9 mmol/L (3.4-5.0)
[2020-03-15 07:47] LABS: BAND 2 % (0-10); LYMPHOCYTE 5 % (20.0-51.0); NEUTROPHILS 88 % (42.0-75.2)
[2020-03-15 07:48] LABS: HYPOCHROMIA 2+; PLATELET ESTIMATE INCREASED (NORMAL); STOMATOCYTE 1+
[2020-03-15 08:41] LABS: INR 3.4 (0.8-3.0); PROTHROMBIN TIME 38.7 SECONDS (9.7-12.8)
--- NOTE | 2020-03-15 11:06 | NUR ---
I met with Bianca this morning. She reports she is doing ok but getting tired. She is on airvo at 60L and she reports it is doing "ok". She is having some discomfort but "Nothing too bad". I explained to her that her doctors are tyring very hard to do everything that they can to help her get better but that I know she is getting tired. I asked her to let us know if all of these cares get to be too much and that we can just focus on keeping her comfortable. At this time she is wanting to continue with her care but she did listen to option of staying comfortable. I advised her that I was planning to call her son, Del today also. I had to leave a message for Del on his voicemail as he was not available. I also spoke with Dr Worthington, who advised that if pt/family is still wanting to be aggressive, then we may need to look at a [facility] transfer.
--- NOTE | 2020-03-15 12:09 | NUR ---
Assessment hcarted. Bed bath completed. PT given PRN morphine for generalized pain and air hunger, pt states it is already helping her and she feels more at peace, needs to "get some rest". Able to take PO pills but it appears to exaust her, she has little reserve. Turning q2h. Denies needs, will continue to monitor. PICC to ERICA, flushes but no blood return, called Luara in [facility] and she will take a look.
--- NOTE | 2020-03-15 14:34 | NUR ---
Long phone call with son Del Foy. He reports that he wants to support his mother being able to recover if at all possible. He was concerned about how long she could remain on airvo and what would happen next. I told him I did not believe that we have a limit to days on airvo. I did talk with him about possible transfer to an LTAC to allow for extended time to wean down off of such high levels of 02 and that at this point I do not know when or where such a transfer might occur. He is agreeable to considering this. We talked about doing a ZOOM call with his Mom and his brother and sister later on tomorrow or Sunday. He will get us contact information and some times that would work for the family. Support provided.
--- NOTE | 2020-03-15 15:15 | NUR ---
Son Del called and update provided to him. He would like to do a zoom call tomorrow or Sunday with the family.
--- NOTE | 2020-03-15 16:05 | NUR ---
Resident Physician collaborated with LUIS Xavier about palliative consult. At this time, patient would like to continue with care. Patient's son, Del is trying to arrange for a zoom call with patient to include other members of the family. CAMILLE contacted Del to follow up on discharge planning. Del advised he is still needs to talk with his siblings further about goals of care. Patient is still requiring 60 liters of oxygen. Del expressed that if patient continues to need this much oxygen for the next few days, they would likely be leaning towards comfort measures. Del states if they decided to pursue comfort measures, their first preference would likely be returning to [facility] if able. Del advised he is open to CAMILLE sending a [facility] referral with the understanding that no final decision on goals of care has been made at this time. CAMILLE contacted Steven at [facility] and provided the above update. CAMILLE faxed referral and Steven advised he would review and hold off on contactig the family while they work on making these decisions.
--- NOTE | 2020-03-15 17:32 | NUR ---
Pt resting in bed between disturbances, deneis needs for pain meds at this time, able to take some PO mostly liquid. Will give bedside shift report to nightshift nurse who will resume care.
--- NOTE | 2020-03-15 20:52 | NUR ---
SPOKE WITH GILBERTO RAY AND PLACED PATIENT BIPAP /6 RATE 18 100% AND SPO2 INCREASED TO 90-92% AND SUSTAINING.
[2020-03-16 03:07] VITALS: BP 116/59; PULSE 68; TEMP 97.8
[2020-03-16 06:54] LABS: HEMOGLOBIN 10.7 g/dl (12.5-16.0); MEAN CELL VOLUME 80 fl (80.0-100.0); MEAN CORPUSCULAR HEMOGLOBIN 26 pg (27.0-31.0); MEAN CORPUSCULAR HGB CONC 33 g/dl (33.0-37.0); MEAN PLATELET VOLUME 9.5 fl (7.4-10.4); PLATELET COUNT 457 K/mm3 (130-400); RED BLOOD COUNT 4.05 M/mm3 (4.10-5.30)
[2020-03-16 06:57] LABS: HEMATOCRIT 32.3 % (37.0-47.0)
[2020-03-16 07:07] LABS: CALCIUM 9.6 mg/dL (8.4-10.2); CREATININE, serum 0.87 (0.52-1.25); POTASSIUM 3.6 mmol/L (3.4-5.0)
--- NOTE | 2020-03-16 07:15 | NUR ---
patient lethargic, easy to arouse. reactor technician called rn to report patient was satting 84% on max Airvo setting, reactor technician switched patient from Airvo to Bipap. Patient tolerate bipap well, at 93-95% on bIPAP.
[2020-03-16 08:39] LABS: BAND 5 % (0-10); LYMPHOCYTE 5 % (20.0-51.0); MYELOCYTE 1 % (0-0); PLATELET ESTIMATE INCREASED (NORMAL)
[2020-03-16 08:40] LABS: MICROCYTOSIS 1+
[2020-03-16 08:44] LABS: NEUTROPHILS 84 % (42.0-75.2)
[2020-03-16 09:31] VITALS: BP 118/60; PULSE 69; TEMP 97.5
[2020-03-16 12:26] VITALS: BP 116/72; PULSE 68; TEMP 97.9
--- NOTE | 2020-03-16 12:38 | NUR ---
SERVANDO RICCI REPORTS THAT THE PATIENT APPEARS TO BE IN DISCOMFORT. RUTHY HUFF CALLED AND NOTIFIED THAT THE PATIENT IS UNCOMFORTABLE AND IT IS TOO SOON FOR IV MORPHINE.
--- NOTE | 2020-03-16 13:15 | NUR ---
patient offer pain medication to help her be more comfortable with her breathing and pain. labored breathing noted. states that she would like the iv pain medicine to help with. patient states that she is cold. patient offered warm blanket. patient states "that would be nice". iv medication administered. patient tucked in with a warm blanket. patients face wiped down with a wet towel. patient refused oral care or anything to drink. will continue to monitor.
--- NOTE | 2020-03-16 13:32 | NUR ---
SERVANDO RICCI NOTIFIED OF ARRIVAL OF PATIENTS SON NIK.
--- NOTE | 2020-03-16 15:45 | NUR ---
PATIENT . CALLED BY SERVANDO RICCI AND THIS NURSE.
--- NOTE | 2020-03-16 15:52 | NUR ---
The patient was put on comfort measures this day and at 15:45. Morenita Baird, Palliative Care nurse informed this SW [facility] . SW collaborated the above information with the patient's nurse and casting house laborer.
--- NOTE | 2020-03-16 15:56 | NUR ---
Pt's son, Del, arrived this afternoon and requested his mother start comfort care. She was given morphine and ativan IV prior to the removal of her Airvo. She was placed on 2 L/NC for comfort and Del remained at her side for a 1 hour visit after he was assisted with PPE and escorted into the room. His mother declined with slowly decreasing respirations both in volume and frequency. Support was provided and at 1545, she took her last breath. Primary nurse, social services designee and greenhouse instructor were notified. The [facility] has selected [facility]. I notified [facility] of pt's and spoke with Daniel.
--- NOTE | 2020-03-16 16:39 | NUR ---
MON notified of patient , referral number [id number]. May release body to home.
--- NOTE | 2020-03-16 17:28 | NUR ---
[facility] notified.
--- NOTE | 2020-03-16 17:44 | NUR ---
One gold band ring, one mothers ring, one watch with black band, one pair eye glasses sent to home per instructions from son Del Foy. Christiano at the home notified, that belongings will be in body bag with the body.
--- NOTE | 2020-03-16 18:00 | NUR ---
PATIENTS GODDARD CATHETER AND RUE PICC LINE DISCONTINUED. PATIENT GIVEN BED BATH. BELONGINGS AND PATIENT PLACED IN BODY BAG. AWAITING HOME ARRIVAL TO DISCHARGE PATIENT.
--- NOTE | 2020-03-16 18:35 | NUR ---
PATIENT TAKEN BY HOME.
== END 2020-03-16 18:35 | disposition expired | DRG 177 ==
LOC: COL.ER 03:18 → PEDS 09:49 → ICU 21:42 → MEDICAL 03-13 18:15
PROVIDERS: Emergency Medicine; Family Medicine; Internal Medicine Pulmonary Disease; Physician Assistant; Student in an Organized Health Care Education/Training Program; ADMIT Internal Medicine
PROC: 02HV33Z Insertion of Infusion Device into Superior Vena Cava, Percutaneous Approach (ICD-10-PCS; principal; 2020-03-11)
PROC: 5A09457 Assistance with Respiratory Ventilation, 24-96 Consecutive Hours, Continuous Positive Airway Pressure (ICD-10-PCS; 2020-03-15)
DX: U07.1 COVID-19 (principal); J96.01 Acute respiratory failure with hypoxia; J15.9 Unspecified bacterial pneumonia; G72.81 Critical illness myopathy; D68.9 Coagulation defect, unspecified; K21.9 Gastro-esophageal reflux disease without esophagitis; G89.29 Other chronic pain; E03.9 Hypothyroidism, unspecified; G20 Parkinson's disease; I48.91 Unspecified atrial fibrillation; E78.5 Hyperlipidemia, unspecified; E87.6 Hypokalemia; I95.9 Hypotension, unspecified; Z66 Do not resuscitate; M54.9 Dorsalgia, unspecified; E86.0 Dehydration; E83.52 Hypercalcemia; Z86.711 Personal history of pulmonary embolism; Z79.01 Long term (current) use of anticoagulants; Z90.710 Acquired absence of both cervix and uterus; Z90.49 Acquired absence of other specified parts of digestive tract
CPT/HCPCS: 99223-AI; 99233-AI; 99239; C1751; J0696; J1100; J1940; J2060; J2270; J3430; J3480; J7030; J7050; J8540; Q9967